=== PATIENT | female | born 1970 | race Caucasian/White ===

== ENCOUNTER 2018-03-12 04:09 | Emergency (ER) | payer OTHER ==
[2018-03-12] MEDS ORDERED: ALUM & MAG HYDROX-SIMETHICONE 30 ML, LIDOCAINE VISCOUS 2% 15 ML PO ONE ×2 (04:36)
[2018-03-12 04:41] VITALS: O2SAT 98
[2018-03-12] MEDS ORDERED: ALUM & MAG HYDROX-SIMETHICONE 30 ML UD ONE (04:43)
[2018-03-12] MEDS ORDERED: LIDOCAINE HCL 2% (MOUTH-THROAT) 15 ML UD ONE (04:43)
[2018-03-12] MEDS ORDERED: FAMOTIDINE 20 MG TAB PO ONE (05:21)
--- NOTE | 2018-03-12 05:31 | ED.PDOC ---
History of Present Illness - General Chief Complaint: Abdominal Pain Stated Complaint: abd pain Time Seen by Provider: 03/12/18 04:36 Source: patient Exam Limitations: no limitations - History of Present Illness Initial Comments: patient is a 47-year-old female presenting to the emergency room secondary to the abrupt onset of epigastric to right upper quadrant pain that woke her from sleep. Pain is still present. It started about one half hour prior to arrival. She did have one episode of vomiting. Pain radiated to around the right side to the back. No inguinal pain. No urinary symptoms. No fever. No similar symptoms prior. She does still have her gallbladder. No history of any stomach ulcers. Timing/Duration: 1/2 hour Severity: severe Improving Factors: nothing Worsening Factors: nothing Associated Symptoms: diaphoresis, loss of appetite, nausea/vomiting Allergies/Adverse Reactions: Allergies Promethazine [From Phenergan] Allergy (Verified 03/12/18 04:49) Sulfa Antibiotics Allergy (Verified 03/12/18 04:49) Home Medications: Ambulatory Orders Ciprofloxacin [Cipro] 500 mg PO BID #14 tab 03/12/18 Famotidine 20 mg PO BID #60 tab 03/12/18 Metronidazole 500 mg PO TID #20 tab 03/12/18 Review of Systems - Review of Systems Constitutional: States: no symptoms reported EENTM: States: no symptoms reported Respiratory: States: no symptoms reported Cardiology: States: no symptoms reported Gastrointestinal/Abdominal: States: see HPI Genitourinary: States: no symptoms reported Musculoskeletal: States: no symptoms reported Skin: States: no symptoms reported Neurological: States: no symptoms reported Endocrine: States: no symptoms reported All other Systems: No Change from Baseline Past Medical History (General) - Patient Medical History Hx Seizures: Yes Hx Thyroid Disease: Yes Hx Diabetes: No Surgical History: Hysterectomy - Vaccination History Hx Tetanus, Diphtheria Vaccination: Yes Hx Influenza Vaccination: Yes - Social History Hx Tobacco Use: Yes Hx Alcohol Use: No Family Medical History - Family History Mother Family History: No Known Physical Exam - Physical Exam General Appearance: Alert, Comfortable, No apparent distress Eye Exam: bilateral normal Ears, Nose, Throat: hearing grossly normal, normal pharynx Neck: full range of motion Respiratory: lungs clear, normal breath sounds, no respiratory distress, no accessory muscle use Cardiovascular/Chest: normal peripheral pulses, regular rate, rhythm, no edema Peripheral Pulses: radial,right: 2+, radial,left: 2+, dorsalis pedis,right: 2+, dorsalis pedis,left: 2+ Gastrointestinal/Abdominal: soft, other - epigastric and right upper quadrant discomfort palpation. No definite Al sign. No rebound No definite palpable mass. 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 Lab work shows a mild elevation of her white blood cell count. Otherwise lab works looks essentially normal as does the plain x-rays. Most likely source of her discomfort is either significant gastritis or very early cholecystitis. Given the very recent nature of her symptom onset, CT scan would not likely be helpful at this time. For now the patient is empirically going to be placed on metronidazole and ciprofloxacin for 7 days. Additionally she is going to be placed on Pepcid twice daily. She needs to keep herself well hydrated. Maalox can be used additionally as needed. She needs to follow up with her primary care doctor tomorrow if symptoms are not starting to improve or later next week if she is doing better. ER warnings were given for any acute worsening. if symptoms abruptly worsen in spite of the treatment above then she will need additional imaging. - Results/Orders Results/Orders: 03/12/18 05:40 AMYLASE Stat CARDIAC ENZYME GROUP Stat COMPLETE METABOLIC PROFILE Stat LIPASE Stat Laboratory Results - last 24 hr 03/12/18 03/12/18 03/12/18 04:36 04:49 05:40 WBC RBC Hgb Hct MCV MCH MCHC RDW Plt Count MPV Absolute Neuts (auto) Absolute Lymphs (auto) Absolute Monos (auto) Absolute Eos (auto) Absolute Basos (auto) Neutrophils % Lymphocytes % Monocytes % Eosinophils % Basophils % PT INR PTT (SP) D-Dimer, Quantitative Sodium 138 Potassium 3.8 Chloride 101 Carbon Dioxide 29 Anion Gap 11.8 L BUN 16 Creatinine 0.96 BUN/Creatinine Ratio 16.7 Random Glucose 113 H Serum Osmolality 277.7 Calcium 9.3 Total Bilirubin 0.6 AST 51 H ALT 35 Alkaline Phosphatase 61 Creatine Kinase 73 Serum Total Protein 7.8 Albumin 4.4 Globulin 3.4 Albumin/Globulin Ratio 1.3 Amylase 64 Lipase 35 Urine Color Yellow Urine Appearance Clear Urine pH 5.5 Ur Specific Faber >= 1.030 Urine Protein Negative Urine Glucose (UA) Negative Urine Ketones Trace Urine Blood Negative Urine Nitrite Negative Urine Bilirubin Negative Urine Urobilinogen 0.2 Ur Leukocyte Esterase Negative Urine RBC 0 Urine WBC 0-1 Ur Epithelial Cells 0-1 Urine Bacteria Rare Urine Mucus Small Urine HCG, Qual Negative 03/12/18 03/12/18 05:40 05:40 WBC 10.9 H RBC 4.73 Hgb 14.2 Hct 41.2 MCV 87.2 MCH 30.1 MCHC 34.6 RDW 12.3 Plt Count 321 MPV 8.7 Absolute Neuts (auto) 9.00 H Absolute Lymphs (auto) 1.10 Absolute Monos (auto) 0.60 Absolute Eos (auto) 0.10 Absolute Basos (auto) 0.00 Neutrophils % 82.9 H Lymphocytes % 10.1 L Monocytes % 5.6 Eosinophils % 1.2 Basophils % 0.2 PT 10.5 INR 0.900 PTT (SP) 29.1 D-Dimer, Quantitative < 230 Sodium Potassium Chloride Carbon Dioxide Anion Gap BUN Creatinine BUN/Creatinine Ratio Random Glucose Serum Osmolality Calcium Total Bilirubin AST ALT Alkaline Phosphatase Creatine Kinase Serum Total Protein Albumin Globulin Albumin/Globulin Ratio Amylase Lipase Urine Color Urine Appearance Urine pH Ur Specific Faber Urine Protein Urine Glucose (UA) Urine Ketones Urine Blood Urine Nitrite Urine Bilirubin Urine Urobilinogen Ur Leukocyte Esterase Urine RBC Urine WBC Ur Epithelial Cells Urine Bacteria Urine Mucus Urine HCG, Qual acute abdominal series shows no evidence of any acute pathology. No obstruction. No ileus. No free air. No pulmonary infiltrates. Departure - Departure Clinical Impression: Abdominal pain Qualifiers: Abdominal location: upper abdomen, unspecified Qualified Code(s): R10.10 - Upper abdominal pain, unspecified Disposition: Discharge to Home or Self Care Condition: Fair Departure Forms: ED Discharge - Pt. Copy, Patient Portal Self Enrollment Instructions: DI for Abdominal Pain-Adult Diet: bland diet Activity: increase activity as tolerated Prescriptions: Ciprofloxacin [Cipro] 500 mg PO BID #14 tab Famotidine 20 mg PO BID #60 tab Metronidazole 500 mg PO TID #20 tab Home Medications: Ambulatory Orders Ciprofloxacin [Cipro] 500 mg PO BID #14 tab 03/12/18 Famotidine 20 mg PO BID #60 tab 03/12/18 Metronidazole 500 mg PO TID #20 tab 03/12/18 Additional Instructions: the patient's a 47-year-old female presenting to the emergency room secondary to epigastric to right upper quadrant discomfort that was acute in onset this morning, just a few hours ago. Lab work shows a mild elevation of her white blood cell count. Otherwise lab works looks essentially normal as does the plain x-rays. Most likely source of her discomfort is either significant gastritis or very early cholecystitis. Given the very recent nature of her symptom onset, CT scan would not likely be helpful at this time. For now the patient is empirically going to be placed on metronidazole and ciprofloxacin for 7 days. Additionally she is going to be placed on Pepcid twice daily. She needs to keep herself well hydrated. Maalox can be used additionally as needed. She needs to follow up with her primary care doctor tomorrow if symptoms are not starting to improve or later next week if she is doing better. ER warnings were given for any acute worsening. if symptoms abruptly worsen in spite of the treatment above then she will need additional imaging.
[2018-03-12] MEDS: ONDANSETRON ODT 8 MG TAB SL ONE ×2 (05:38→05:39)
--- NOTE | 2018-03-12 05:46 | RAD ---
Acute abdominal series on 03/12/2018 CLINICAL INDICATION: Acute severe epigastric pain COMPARISON: None FINDINGS: CHEST: The lungs are clear. Cardiac, hilar and mediastinal contours are within normal limits. Pulmonary vascularity is within normal limits. ABDOMEN: There is no free air. Calcifications in the pelvis are consistent with phleboliths. Degenerative changes are noted in the lower lumbar spine. Bowel gas pattern is unremarkable. No other abnormal calcification or mass effect is noted. IMPRESSION: 1. No acute cardiopulmonary disease. 2. Nonspecific abdomen. Electronically signed by: Cooper Chang 03/12/2018 5:44 AM CDT
[2018-03-12] MEDS ORDERED: metroNIDAZOLE 500 MG TAB PO ONE (06:13)
[2018-03-12] MEDS ORDERED: CIPROFLOXACIN 500 MG TAB PO ONE (06:13)
[2018-03-12 06:36] VITALS: BP 112/78; TEMP 97.2
== END 2018-03-12 06:36 | disposition home or self-care (01) ==
LOC: ER 04:09
DX: R10.11 Right upper quadrant pain (principal); R10.13 Epigastric pain; E07.9 Disorder of thyroid, unspecified; Z87.891 Personal history of nicotine dependence

== ENCOUNTER → 2018-03-20 | Outpatient (CLI) | payer OTHER ==
--- NOTE | 2018-03-20 11:35 | US ---
EXAM DESCRIPTION: Gall Bladder CLINICAL HISTORY: EPIGASTRIC ABDOMINAL PAIN 789.06 COMPARISON: None Available. TECHNIQUE: Right upper quadrant ultrasound FINDINGS: Pancreas: Visualized portions of the pancreas are unremarkable. Bowel gas obscures some areas. Aorta/inferior vena cava: No aortic aneurysm. Normal inferior vena cava. Liver: The liver is homogeneous in texture with normal echogenicity of the hepatic parenchyma. No focal liver lesion or intrahepatic bile duct dilatation. No liver surface irregularity. Normal appearance of the portal vein and hepatic veins. Gallbladder: Multiple stones are seen in the gallbladder. There is posterior shadowing. Sonographic Al sign was reported as negative. Four clinically equivocal cases, radionuclide hepatobiliary scan may be helpful. Largest stone measures 1 cm. Gallbladder wall thickness measures 3.5 mm which is increased. Common bile duct: Normal caliber measuring 4.2 mm. Right kidney: Renal length is 9.7 cm. Normal to mildly increased cortical echogenicity. Cortical thickness is normal. No hydronephrosis is seen. No renal mass or shadowing calculus. IMPRESSION: Multiple gallstones with mild gallbladder wall thickening. See above. Electronically signed by: Chucky Allen MD 03/20/2018 11:34 AM CDT
== END ==
LOC: US 08:03
PROVIDERS: ATTEND Family Medicine
DX: R10.13 Epigastric pain (principal); K80.20 Calculus of gallbladder without cholecystitis without obstruction

== ENCOUNTER 2018-03-24 05:46 | Day surgery (SDC) | payer OTHER ==
[2018-03-24] MEDS ORDERED: LACTATED RINGERS 1,000 ML ONE (07:14)
[2018-03-24] MEDS ORDERED: SODIUM CHL 0.9% 100ML MINI-BAG 100 ML IVPB ONE (07:14)
[2018-03-24] MEDS ORDERED: ceFAZolin SODIUM 1 GM VIAL ONE (07:14)
[2018-03-24] MEDS ORDERED: SCOPOLAMINE PATCH 1.5MG 1 EA TD ONE (07:54)
[2018-03-24] MEDS ORDERED: ONDANSETRON ODT 8 MG TAB ONE (07:54)
[2018-03-24] MEDS ORDERED: BUPIVACAINE 0.25% W/EPI 50 ML VIAL INJ ONE (07:58)
[2018-03-24] MEDS ORDERED: HEPARIN SODIUM (PORCINE) 10,000 UNITS/ML VIAL ONE (07:59)
[2018-03-24] MEDS ORDERED: MIDAZOLAM INJ 2 MG/2 ML VIAL ONE (08:04)
[2018-03-24] MEDS ORDERED: ROCURONIUM BROMIDE 10 MG/ML VIAL ONE (08:05)
[2018-03-24] MEDS ORDERED: fentaNYL CITRATE INJ 50 MCG/ML AMP ONE (08:05)
[2018-03-24] MEDS ORDERED: ACETAMINOPHEN IV 1000MG 100 ML ONE (08:35)
[2018-03-24] MEDS ORDERED: SUGAMMADEX SODIUM 200 MG/2 ML VIAL IV ONE (09:44)
[2018-03-24] MEDS: ELECTROLYTE-A 1,000 ML IVS ONE ×2 (09:58→11:10)
[2018-03-24] MEDS ORDERED: LIDOCAINE 1% 10 ML VIAL INJ ONE (10:00)
[2018-03-24] MEDS ORDERED: raNITIdine HCL INJ 25 MG/ML VIAL IV ONE (10:00)
[2018-03-24] MEDS ORDERED: PROPOFOL 200 MG/20 ML VIAL IV ONE (10:00)
[2018-03-24] MEDS ORDERED: KETOROLAC TROMETHAMINE INJ 30 MG/ML VIAL IV ONE (10:00)
[2018-03-24] MEDS ORDERED: METOCLOPRAMIDE HCL INJ 10 MG/2 ML VIAL IV ONE (10:00)
[2018-03-24] MEDS ORDERED: DEXAMETHASONE INJ 10 MG/ML VIAL IV ONE (10:00)
[2018-03-24] MEDS: fentaNYL CITRATE INJ 50 MCG/ML AMP ONE ×3 (10:10→10:35)
[2018-03-24] MEDS ORDERED: ONDANSETRON INJ 4 MG/2 ML VIAL ONE (10:16)
--- NOTE | 2018-03-24 10:32 | OP ---
DATE OF PROCEDURE: 03/24/18 PREOPERATIVE DIAGNOSIS: 1. Symptomatic cholelithiasis. POSTOPERATIVE DIAGNOSIS: 1. Symptomatic cholelithiasis. 2. Chronic cholecystitis. PROCEDURE: 1. Laparoscopic cholecystectomy with intraoperative cholangiography using fluoroscopy. SURGEON: Harshad Singletary MD. B[place] HUNTER: None. ANESTHESIA: Local infiltration of 0.25% Marcaine with epinephrine and general endotracheal anesthesia. INDICATION: The patient is a 47-year-old female who has had a several week history of right upper quadrant abdominal pain with radiation to the back associated with fatty meals. There is no history of hepatitis or jaundice. She has sonographically diagnosed cholelithiasis. After the risks, benefits and alternatives to laparoscopic cholecystectomy with cholangiography were discussed and accepted, the patient was brought to the Surgical Suite today for cholecystectomy. FINDINGS: The gallbladder wall was thickened with no real adhesions to the gallbladder. There were adhesions to the base of the liver. Intraoperative cholangiography revealed free flow into the duodenum with no filling defects or strictures noted. No other significant inflammatory process as identified. DESCRIPTION OF PROCEDURE: After adequate general endotracheal anesthesia was obtained, the patient was prepped and draped in the usual sterile manner. Surgical time-out was taken. The infraumbilical area was infiltrated in the area of the previous incision and then incised sharply. Dissection was carried down through the skin and subcutaneous tissue to the midline fascia. Traction sutures were placed on either side of the midline. A small incision was made in the midline fascia and the peritoneum was opened bluntly. French trocar was introduced under direct vision into the abdominal cavity and fixed in place with the 20 mL balloon. CO2 was then insufflated until a pressure of 12 mmHg was reached and the abdomen was tympanitic in all four quadrants. When this was done, the laparoscope was introduced. The abdomen was inspected with the previously noted findings. The patient was then placed in reverse Trendelenburg position, turned to the left side. The upper abdominal ports were placed under direct vision. The gallbladder was grasped, retracted anteriorly and laterally. The neck of the gallbladder was retracted laterally. The triangle of Calot was then explored with the cystic duct and cystic artery identified and isolated. The cystic duct was hemoclipped once proximally. A small tear was noted in the neck of the gallbladder and this was clipped. The cystic artery was hemoclipped twice proximally and once distally. A small incision was made in the cystic duct. The cholangiogram catheter was introduced through a separate stab wound in the right upper quadrant, introduced into the cystic duct and clipped in place. Cholangiograms were then taken using fluoroscopy which revealed free flow into the duodenum with no filling defects or strictures noted. When this was done, the cystic duct catheter was removed. The cystic duct was hemoclipped three times distally and divided between the hemoclips. The cystic artery was divided. The gallbladder was then dissected free from the gallbladder bed of the liver using electrocautery without difficult. The gallbladder was removed from the infraumbilical port site in the usual manner under direct vision. When this was done, the subhepatic space and subphrenic space were irrigated copiously with saline. There was no significant bleeding identified. The effluent was noted to be clear with slight blood tinging. Again, hemostasis was noted to be adequate. The tho hepatis was inspected and no bleeding or bile leak was identified. The upper abdominal ports were removed under direct vision and adequate hemostasis was noted. At this point, the CO2, the laparoscope and the infraumbilical port were removed. The infraumbilical port site fascia was approximated with a single [id number] suture of 0 Vicryl. Subcutaneous tissue was irrigated with saline. Skin edges were approximated with 4-0 Vicryl subcuticular sutures, benzoin and Steri-Strips. Sterile dressings were applied. The patient was awakened and taken to the Recovery Room in good and stable condition. Estimated blood loss was less than 50 mL. All sponge, needle and instrument counts were correct. #[id number] [facility]
[2018-03-24] MEDS ORDERED: HALOPERIDOL LACTATE INJ 5 MG/ML VIAL IM ONE (10:42)
[2018-03-24] MEDS ORDERED: HYDROcodone 5MG/APAP 325MG 1 EA TAB ONE (12:49)
[2018-03-24 13:10] VITALS: O2SAT 100
[2018-03-24 13:32] VITALS: BP 100/61; TEMP 98.4
== END 2018-03-24 13:50 | disposition home or self-care (01) ==
LOC: AMB 05:46
PROVIDERS: ATTEND Surgery
DX: K81.1 Chronic cholecystitis (principal); K82.8 Other specified diseases of gallbladder; H40.9 Unspecified glaucoma; E89.0 Postprocedural hypothyroidism; E66.9 Obesity, unspecified; Z88.2 Allergy status to sulfonamides; Z88.8 Allergy status to other drugs, medicaments and biological substances; Z79.899 Other long term (current) drug therapy
CPT/HCPCS: 00790; 36415; 47563; 76000; 80053; 81001; 85025; J0690; J1100; J1644; J1885; J2250; J2405; J2765; J2780; J3010; J3490; J7050; J7120